=== PATIENT | male | born 1960 | race Caucasian/White ===

== ENCOUNTER 2016-10-04 00:41 | Emergency (ER) | payer OTHER ==
[~2016-10-04 00:41] MED LIST: CYCL-36 PO; TRAM50 PO; Z.0.NO CURRENT MEDS
[2016-10-04 01:18] LABS: AUTOMATED NEUTROPHIL # 4.4 TH/MM3 (1.8-7.7); BASOPHIL % 0.6 % (0.0-2.0); EOSINOPHIL # 0.1 TH/MM3 (0-0.4); EOSINOPHIL % 2.1 % (0.0-4.0); HEMATOCRIT 42.4 % (39.0-51.0); HEMO FLAGS DIFF FINAL; LYMPH % 28.5 % (9.0-44.0); MEAN CELL VOLUME 83.4 FL (80.0-100.0); MEAN CORPUSCULAR HEMOGLOBIN 29.2 PG (27.0-34.0); MONO % 4.7 % (0.0-8.0); NEUT % 64.1 % (16.0-70.0); PLATELET COUNT 263 TH/MM3 (150-450); RED BLOOD COUNT 5.09 MIL/MM3 (4.50-5.90); RED CELL DISTRIBUTION WIDTH 15.5 % (11.6-17.2); WHITE BLOOD COUNT 6.9 TH/MM3 (4.0-11.0)
[2016-10-04 01:19] VITALS: BP 125/73; PULSE 75; RESP 16; TEMP 98.2; O2SAT 98
--- NOTE | 2016-10-04 01:21 | PD ---
HPI Chief Complaint: Morales act Time Seen by Provider: 01:05 Travel History International Travel<30 days: No Contact w/Intl Traveler<30days: No Traveled to known affect area: No History of Present Illness HPI This is a 56-year-old male who presents under Morales act initiated by the Police Department. According to his paperwork he was threatening to kill his neighbor. He also drank vodka today. The patient reports that his neighbor is a [employer] and he is a of the [place] and this creates some animosity between him and his neighbor. When asked if he wants to kill his neighbor he does not respond. He does admit to alcohol use today, he will not tell me what type of alcohol or how much. He denies any drug use. He denies any medical complaints at this time. He denies any suicidal ideation. He has no complaints. PFSH Past Medical History Diminished Hearing: No Past Surgical History Eye Surgery: Yes ( A CHILD - LEFT EYE SURGERY-UNSUCCESSFUL ATTEMPT TO REPAIR A TENDON.) Social History Alcohol Use: Yes (6 PACK A WEEK) Tobacco Use: Yes (1 PPD) Substance Use: Yes Allergies-Medications (Allergen,Severity, Reaction): Coded Allergies: No Known Allergies (Verified , 10/04/16) Reported Meds & Prescriptions Reported Meds & Active Scripts Active Reported [Blood Pressure] Review of Systems Except as stated in HPI: all other systems reviewed are Neg Physical Exam Narrative GENERAL: Well-developed well-nourished male in no acute distress SKIN: Warm and dry. HEAD: Atraumatic. Normocephalic. EYES: Pupils equal and round. No scleral icterus. No injection or drainage. ENT: No nasal bleeding or discharge. Mucous membranes pink and moist. NECK: Trachea midline. No JVD. CARDIOVASCULAR: Regular rate and rhythm. No murmur appreciated. RESPIRATORY: No accessory muscle use. Clear to auscultation. Breath sounds equal bilaterally. GASTROINTESTINAL: Abdomen soft, non-tender, nondistended. MUSCULOSKELETAL: No obvious deformities. NEUROLOGICAL: Awake and alert. No obvious cranial nerve deficits. Motor grossly within normal limits. Normal speech. PSYCHIATRIC: Appropriate mood and affect; insight and judgment normal. Data Data Last Documented VS Vital Signs Date Time Temp Pulse Resp B/P Pulse Ox O2 Delivery O2 Flow Rate FiO2 10/04/16 01:19 98.2 75 16 125/73 98 Orders Complete Blood Count With Diff (10/04/16 00:59) Comprehensive Metabolic Panel (10/04/16 00:59) Drug Screen, Random Urine (10/04/16 00:59) Oximetry (10/04/16 00:59) Ecg Monitoring (10/04/16 00:59) Oxygen Administration (10/04/16 00:59) Alcohol (Ethanol) (10/04/16 00:59) Salicylates (Aspirin) (10/04/16 00:59) Tylenol (Acetaminophen) (10/04/16 00:59) Psych Screen (10/04/16 00:59) Labs Laboratory Tests Test 10/04/16 10/04/16 00:55 01:00 White Blood Count 6.9 TH/MM3 Red Blood Count 5.09 MIL/MM3 Hemoglobin 14.9 GM/DL Hematocrit 42.4 % Mean Corpuscular Volume 83.4 FL Mean Corpuscular Hemoglobin 29.2 PG Mean Corpuscular Hemoglobin 35.0 % Concent Red Cell Distribution Width 15.5 % Platelet Count 263 TH/MM3 Mean Platelet Volume 7.8 FL Neutrophils (%) (Auto) 64.1 % Lymphocytes (%) (Auto) 28.5 % Monocytes (%) (Auto) 4.7 % Eosinophils (%) (Auto) 2.1 % Basophils (%) (Auto) 0.6 % Neutrophils # (Auto) 4.4 TH/MM3 Lymphocytes # (Auto) 2.0 TH/MM3 Monocytes # (Auto) 0.3 TH/MM3 Eosinophils # (Auto) 0.1 TH/MM3 Basophils # (Auto) 0.0 TH/MM3 CBC Comment DIFF FINAL Differential Comment Salicylates Level 3.5 MG/DL Urine Opiates Screen NEG Urine Barbiturates Screen NEG Urine Amphetamines Screen NEG Urine Benzodiazepines Screen NEG Urine Cocaine Screen NEG Urine Cannabinoids Screen NEG Sodium Level 142 MEQ/L Potassium Level 3.8 MEQ/L Chloride Level 108 MEQ/L Carbon Dioxide Level 24.0 MEQ/L Anion Gap 10 MEQ/L Blood Urea Nitrogen 15 MG/DL Creatinine 1.23 MG/DL Estimat Glomerular Filtration 60 ML/MIN Rate Random Glucose 98 MG/DL Calcium Level 8.4 MG/DL Total Bilirubin 0.1 MG/DL Aspartate Amino Transf 22 U/L (AST/SGOT) Alanine Aminotransferase 43 U/L (ALT/SGPT) Alkaline Phosphatase 123 U/L Total Protein 7.1 GM/DL Albumin 3.3 GM/DL Acetaminophen Level LESS THAN 2.0 MCG/ML Ethyl Alcohol Level 290 MG/DL MDM Medical Decision Making Medical Screen Exam Complete: Yes Emergency Medical Condition: Yes Medical Record Reviewed: Yes Interpretation(s) CBC unremarkable CMP unremarkable Alcohol level 290 Differential Diagnosis Substance-induced disorder, adjustment reaction, intermittent explosive disorder , acute psychosis, encephalitis Narrative Course 56-year-old male presents under Morales act for homicidal ideation. Mental health screening discussed with the patient. Psychiatric screen ordered. The patient is medically cleared for psychiatric disposition. Ramon Nunez Oct 04, 2016 01:21
[2016-10-04] MEDS ORDERED: BLOOD PRESSURE (01:24)
[2016-10-04 01:34] LABS: AMPHETAMINE, URINE NEG (NEG); BARBITURATES, URINE NEG (NEG); COCAINE, URINE NEG (NEG)
[2016-10-04 01:50] LABS: ACETAMINOPHEN LESS THAN 2.0 MCG/ML (10.0-30.0); ALKALINE PHOSPHATASE 123 U/L (45-117); TOTAL BILIRUBIN ADULT 0.1 MG/DL (0.2-1.0)
[2016-10-04 01:52] LABS: ALT (GPT) 43 U/L (12-78); ANION GAP 10 MEQ/L (5-15); AST (GOT) 22 U/L (15-37); BLOOD UREA NITROGEN 15 MG/DL (7-18); CHLORIDE 108 MEQ/L (98-107); GLOMERULAR FILTRATION RATE 60 ML/MIN (>89); POTASSIUM 3.8 MEQ/L (3.5-5.1); SODIUM (NA) 142 MEQ/L (136-145)
[2016-10-04 06:31] VITALS: BP 120/72; PULSE 88; RESP 20; TEMP 98; O2SAT 98
--- NOTE | 2016-10-04 12:09 | PD.CONS ---
Provisional Diagnosis Admission Date [place]. Alcohol-induced mood disorder, alcohol use disorder History of Present Illness Service Psychiatry Consult Requested By Primary Care Physician [facility] HPI The patient is a 56-year-old man, domiciled alone in [place], single, unemployed, without any previous psychiatric history, alcohol use disorder, no significant medical history, who presents under Morales act initiated by the Police Department. According to his paperwork he was threatening to kill his neighbor under the context of alcohol intoxication. He he admitted drinking vodka yesterday and being drunk. The patient reports that his neighbor is a [employer] and he is a of the [employer] and this creates some animosity between him and his neighbor. Patient today describes his mood as fine, he is clinically sober, he says that yesterday he was just drunk and not thinking right, he denies suicidal or homicidal ideation, he says that he will never harm his neighbor "even though I don't like him". Patient denies present current christine, anxiety, and perceptual disturbances,. Patient denies visual and auditory hallucinations, patient is oriented 3. He reports the use of alcohol every day, between 8-12 beers, he denies withdrawal, he denies the use of illicit drug. Review of Systems Constitutional: DENIES: Diaphoretic episodes, Fatigue, Fever, Weight gain, Weight loss, Chills, Dizziness, Change in appetite, Night Sweats Endocrine: DENIES: Heat/cold intolerance, Polydipsia, Polyuria, Polyphagia Eyes: DENIES: Blurred vision, Diplopia, Eye inflammation, Eye pain, Vision loss , Photosensitivity, Double Vision Ears, nose, mouth, throat: DENIES: Tinnitus, Hearing loss, Vertigo, Nasal discharge, Oral lesions, Throat pain, Hoarseness, Ear Pain, Running Nose, Epistaxis, Sinus Pain, Toothache, Odynophagia Respiratory: DENIES: Apneas, Cough, Snoring, Wheezing, Hemoptysis, Sputum production, Shortness of breath Cardiovascular: DENIES: Chest pain, Palpitations, Syncope, Dyspnea on Exertion , PND, Lower Extremity Edema, Orthopnea, Claudication Gastrointestinal: DENIES: Abdominal pain, Black stools, Bloody stools, Constipation, Diarrhea, Nausea, Vomiting, Difficulty Swallowing, Anorexia Genitourinary: DENIES: Sexual dysfunction, Urinary frequency, Urinary incontinence, Urgency, Hematuria, Dysuria, Nocturia, Penile Discharge, Testicular Pain, Testicular Swelling Musculoskeletal: DENIES: Joint pain, Muscle aches, Stiffness, Joint Swelling, Back pain, Neck pain Integumentary: DENIES: Abnormal pigmentation, Nail changes, Pruritus, Rash Immunologic/allergic: DENIES: Eczema, Urticaria Neurologic: DENIES: Abnormal gait, Headache, Localized weakness, Paresthesias, Seizures, Speech Problems, Tremor, Poor Balance Psychiatric: DENIES: Anxiety, Confusion, Mood changes, Depression, Hallucinations, Agitation, Suicidal Ideation, Homicidal Ideation, Delusions Past Family Social History Coded Allergies: No Known Allergies (Verified , 10/04/16) Reported Medications [Blood Pressure] No Conflict Check 10/04/16 Physical Exam Vital Signs Vital Signs Date Time Temp Pulse Resp B/P Pulse Ox O2 Delivery O2 Flow Rate FiO2 10/04/16 06:31 98.0 88 20 120/72 98 Room Air Mental Status Examination Appearance man, age appearing, good hygiene, [facility], calm and cooperative Speech: Unremarkable Orientation: x3 Memory: Unremarkable Thought Process: Logical Thought Content: Unremarkable Hallucination Type: None Attention and Concentration: Good Suicidal Ideation: No Homicidal Ideation: No Insight: Good Affect: Good Mood: Appropriate Motor Activity: Normal gait Assessment & Plan Problem List: (1) Alcohol abuse with alcohol-induced mood disorder Assessment & Plan: On psychiatric evaluation today patient is clinically sober , there is no evidence of objective or subjective depressive symptoms, anxiety, christine and perceptual disturbances. Patient denies suicidal or homicidal ideation. He denies visual and auditory hallucinations. He is highly probable that aggressive behavior and homicidal ideation display yesterday by the patient was secondary to poor judgment related with alcohol intoxication and patient's character and no to a primary psychiatric condition. Patient does not meet criteria for psychiatric admission. Morales act will be lifted. Extensive psychoeducation, motivational and support provided. Patient will be discharged back home. ICD Code: F10.14 Assessment & Plan Estimated LOS: days Request HC Surrog/Guard Advoc?: Philippe Kraus MD Oct 04, 2016 12:09
== END 2016-10-04 08:08 | disposition home or self-care (01) ==
LOC: NEPA 00:41
DX: F10.14 Alcohol abuse with alcohol-induced mood disorder (principal); F17.210 Nicotine dependence, cigarettes, uncomplicated; Z56.0 Unemployment, unspecified
CPT/HCPCS: 80053; 80307; 85025; 99283; G0480; 80320; 80329; G0481

== ENCOUNTER 2017-03-08 18:56 | Emergency (ER) | payer OTHER ==
[~2017-03-08 18:56] MED LIST changes: +BLOOD PRESSURE; -CYCL-36 PO; -TRAM50 PO; -Z.0.NO CURRENT MEDS
[2017-03-08 19:07] VITALS: BP 88/44; PULSE 88; RESP 18; TEMP 97.8; O2SAT 98
--- NOTE | 2017-03-08 19:26 | PD ---
HPI Chief Complaint: Medical Clearance Time Seen by Provider: 19:21 Travel History International Travel<30 days: No Contact w/Intl Traveler<30days: No History of Present Illness HPI Patient is a 56-year-old male brought in by the police department for evaluation of a head abrasion after striking his head on the divider in the backseat of the police car. There was no loss of consciousness. Patient denies any headache, visual changes area he has no physical complaints at this time. He is not forthcoming with his medical history, he is agitated with the campus police officer. Patient is alert and oriented. [facility] Past Medical History Medical History: Denies Significant Hx Diminished Hearing: No Hypertension: Yes Immunizations Current: Yes Past Surgical History Eye Surgery: Yes ( A CHILD - LEFT EYE SURGERY-UNSUCCESSFUL ATTEMPT TO REPAIR A TENDON.) Social History Alcohol Use: Yes (6 PACK A WEEK) Tobacco Use: Yes (1 PPD) Substance Use: Yes Allergies-Medications (Allergen,Severity, Reaction): Coded Allergies: No Known Allergies (Verified , 10/04/16) Reported Meds & Prescriptions Reported Meds & Active Scripts Active Reported [Blood Pressure] Review of Systems Except as stated in HPI: all other systems reviewed are Neg Skin: Positive Other (abrasion to scalp) Physical Exam Narrative GENERAL: Well-developed, well-nourished, alert male. In no acute distress. SKIN: Warm and dry. HEAD: Atraumatic. Normocephalic. EYES: Pupils equal and round. No scleral icterus. No injection or drainage. ENT: No nasal bleeding or discharge. Mucous membranes pink and moist. NECK: Trachea midline. No JVD. CARDIOVASCULAR: Regular rate and rhythm. RESPIRATORY: No accessory muscle use. Clear to auscultation. Breath sounds equal bilaterally. GASTROINTESTINAL: Abdomen soft, non-tender, nondistended. Hepatic and splenic margins not palpable. MUSCULOSKELETAL: Extremities without clubbing, cyanosis, or edema. No obvious deformities. NEUROLOGICAL: Awake and alert. No obvious cranial nerve deficits. Motor grossly within normal limits. Five out of 5 muscle strength in the arms and legs. Normal speech. PSYCHIATRIC: Appropriate mood and affect; insight and judgment normal. Data Data Last Documented VS Vital Signs Date Time Temp Pulse Resp B/P Pulse Ox O2 Delivery O2 Flow Rate FiO2 03/08/17 19:07 97.8 88 18 88/44 98 Room Air Orders MDM Medical Decision Making Medical Screen Exam Complete: Yes Emergency Medical Condition: Yes Interpretation(s) Vital Signs Date Time Temp Pulse Resp B/P Pulse Ox O2 Delivery O2 Flow Rate FiO2 03/08/17 19:07 97.8 88 18 88/44 98 Room Air Differential Diagnosis Abrasion versus laceration versus contusion versus other Narrative Course Patient is a 56-year-old male brought in by the Police Department for medical clearance due to the abrasion on his head that he sustained after striking his head on the divider in the backseat of the police car. Patient is alert and oriented 3. He denies any physical complaints at this time. Abrasion was cleaned with peroxide and normal saline, a Band-Aid and antibiotic ointment was applied. Blood pressure was reassessed at 106/65. Patient is medically cleared , and will be discharged to law enforcement. Diagnosis Primary Impression: Medical clearance for incarceration Referrals: [facility] Patient Instructions: Abrasion (ED), General Instructions Additional Instructions: Keep abrasion clean and dry, cover with Band-Aid Follow-up with a primary doctor or at the [facility] Return to emergency department for any new or worsening symptoms Disposition: [address] ENFORCEMNT Condition: Stable Gwen Phillips SIDE GUIDER Mar 08, 2017 19:25
== END 2017-03-08 20:24 ==
LOC: NEPD 18:56
DX: Z04.8 Encounter for examination and observation for other specified reasons (principal); S00.01XA Abrasion of scalp, initial encounter; I10 Essential (primary) hypertension; W22.8XXA Striking against or struck by other objects, initial encounter; Y93.89 Activity, other specified; Y92.89 Other specified places as the place of occurrence of the external cause; F17.210 Nicotine dependence, cigarettes, uncomplicated
CPT/HCPCS: 99283

== ENCOUNTER 2017-04-17 08:44 | Emergency (ER) | payer OTHER ==
[~2017-04-17] VITALS: Ht 172.7 cm; Wt 81.0 kg
[2017-04-17 08:45] VITALS: BP 166/86; PULSE 93; RESP 15; TEMP 97.7; O2SAT 97
[2017-04-17 09:13] VITALS: BP 172/88; PULSE 88; RESP 17; O2SAT 97
--- NOTE | 2017-04-17 10:33 | PD ---
HPI Chief Complaint: Syncope/Near-Syncope Time Seen by Provider: 10:21 Travel History International Travel<30 days: No Contact w/Intl Traveler<30days: No Traveled to known affect area: No History of Present Illness HPI 56-year-old male complains of syncope. Patient states that he was sitting down at home this morning, was trying to stand up and felt dizzy and then passed out. Patient states that he passed out for a few seconds. Patient states that he fell forward however did not hit his head. Patient states that he has aching headache. Patient denies any visual change. Patient states that he has chronic neck pain and that is not new. Patient denies any chest pain or shortness of breath. Patient denies abdominal pain. Patient denies any focal weakness and numbness of extremity. Patient denies any fever chills. Patient denies any nausea vomiting diarrhea. Patient denies any alcohol or drug abuse. Patient has history hypertension and has been taking blood pressure medication. PFSH Past Medical History Diminished Hearing: No Hepatitis: Yes (HEP C) Hypertension: Yes Immunizations Current: Yes Influenza Vaccination: No Past Surgical History Eye Surgery: Yes ( A CHILD - LEFT EYE SURGERY-UNSUCCESSFUL ATTEMPT TO REPAIR A TENDON.) Social History Alcohol Use: Yes (FORMERLY) Tobacco Use: Yes (1/2 PPD) Substance Use: No (FORMERLY MARIJUANA AND IV DRUGS) Allergies-Medications (Allergen,Severity, Reaction): Coded Allergies: No Known Allergies (Verified , 04/17/17) Reported Meds & Prescriptions Reported Meds & Active Scripts Active Review of Systems General / Constitutional: No: Fever Eyes: No: Visual changes HENT: Positive: Headaches Cardiovascular: No: Chest Pain or Discomfort Respiratory: No: Shortness of Breath Gastrointestinal: No: Abdominal Pain Genitourinary: No: Dysuria Musculoskeletal: No: Pain Skin: No Rash Neurologic: No: Weakness Psychiatric: No: Depression Endocrine: No: Polydipsia Hematologic/Lymphatic: No: Easy Bruising Physical Exam Narrative GENERAL: Well-nourished, well-developed patient. SKIN: Focused skin assessment warm/dry. HEAD: Normocephalic. EYES: No scleral icterus. No injection or drainage. Pupils 3 mm equal reactive. NECK: Supple, trachea midline. No JVD or lymphadenopathy. CARDIOVASCULAR: Regular rate and rhythm without murmurs, gallops, or rubs. RESPIRATORY: Breath sounds equal bilaterally. No accessory muscle use. GASTROINTESTINAL: Abdomen soft, non-tender, nondistended. MUSCULOSKELETAL: No cyanosis, or edema. BACK: Nontender without obvious deformity. No CVA tenderness. Neurologic exam normal. Data Data Last Documented VS Vital Signs Date Time Temp Pulse Resp B/P Pulse Ox O2 Delivery O2 Flow Rate FiO2 04/17/17 11:21 77 23 150/90 98 Room Air 04/17/17 08:45 97.7 Orders Electrocardiogram (04/17/17 ) Complete Blood Count With Diff (04/17/17 10:28) Comprehensive Metabolic Panel (04/17/17 10:28) Creatine Kinase (Cpk) (04/17/17 10:28) Troponin I (04/17/17 10:28) Prothrombin Time / Inr (Pt) (04/17/17 10:28) Act Partial Throm Time (Ptt) (04/17/17 10:28) Thyroid Stimulating Hormone (04/17/17 10:28) Chest, Single Ap (04/17/17 10:28) Ct Brain W/O Iv Contrast(Rout) (04/17/17 10:28) Iv Access Insert/Monitor (04/17/17 10:28) Ecg Monitoring (04/17/17 10:28) Oximetry (04/17/17 10:28) Labs Laboratory Tests Test 04/17/17 10:35 White Blood Count 5.1 TH/MM3 Red Blood Count 4.99 MIL/MM3 Hemoglobin 14.6 GM/DL Hematocrit 43.0 % Mean Corpuscular Volume 86.2 FL Mean Corpuscular Hemoglobin 29.3 PG Mean Corpuscular Hemoglobin 33.9 % Concent Red Cell Distribution Width 14.7 % Platelet Count 193 TH/MM3 Mean Platelet Volume 8.3 FL Neutrophils (%) (Auto) 60.2 % Lymphocytes (%) (Auto) 29.4 % Monocytes (%) (Auto) 7.9 % Eosinophils (%) (Auto) 2.0 % Basophils (%) (Auto) 0.5 % Neutrophils # (Auto) 3.1 TH/MM3 Lymphocytes # (Auto) 1.5 TH/MM3 Monocytes # (Auto) 0.4 TH/MM3 Eosinophils # (Auto) 0.1 TH/MM3 Basophils # (Auto) 0.0 TH/MM3 CBC Comment DIFF FINAL Differential Comment Prothrombin Time 10.2 SEC Prothromb Time International 0.9 RATIO Ratio Activated Partial 28.4 SEC Thromboplast Time Sodium Level 138 MEQ/L Potassium Level 4.3 MEQ/L Chloride Level 107 MEQ/L Carbon Dioxide Level 23.5 MEQ/L Anion Gap 8 MEQ/L Blood Urea Nitrogen 16 MG/DL Creatinine 1.09 MG/DL Estimat Glomerular Filtration 69 ML/MIN Rate Random Glucose 125 MG/DL Calcium Level 8.6 MG/DL Total Bilirubin 0.3 MG/DL Aspartate Amino Transf 27 U/L (AST/SGOT) Alanine Aminotransferase 51 U/L (ALT/SGPT) Alkaline Phosphatase 124 U/L Total Creatine Kinase 256 U/L Troponin I LESS THAN 0.02 NG/ML Total Protein 7.4 GM/DL Albumin 3.2 GM/DL Thyroid Stimulating Hormone 3.330 uIU/ML 3rd Gen [facility] Medical Decision Making Medical Screen Exam Complete: Yes Emergency Medical Condition: Yes Interpretation(s) 10:33 AM. EKG shows sinus rhythm nonspecific ST-T wave change. Last Impressions Head CT 04/17/17 1028 Signed Impressions: Service Date/Time: Monday, April 17, 2017 10:44 - CONCLUSION: Normal examination. Aaron Raymond MD Chest X-Ray 04/17/17 1028 Signed Impressions: Service Date/Time: Monday, April 17, 2017 10:37 - CONCLUSION: Normal examination. Aaron Raymond MD 11:26 AM. CBC within normal limit. CMP within normal limit. Cardiac enzymes are normal. Differential Diagnosis Differential diagnosis including vasovagal reaction, dehydration, electrolyte imbalance, TIA, CVA, arrhythmia. Narrative Course 56-year-old male with headache and syncope. Diagnosis Primary Impression: Syncope Qualified Code: R55 - Syncope, unspecified syncope type Additional Impression: Cephalgia Qualified Code: R51 - Acute nonintractable headache, unspecified headache type Patient Instructions: General Instructions Additional Instructions: Encourage by mouth fluid. Follow-up with personal physician. Return as needed. Tylenol for headache. Med/Other Pt SpecificInfo: No Change to Meds Scripts Unable to Obtain Active Prescriptions or Reported Meds Nathan Douglas MD Apr 17, 2017 10:33
[2017-04-17 10:51] LABS: AUTOMATED NEUTROPHIL # 3.1 TH/MM3 (1.8-7.7); BASOPHIL % 0.5 % (0.0-2.0); EOSINOPHIL # 0.1 TH/MM3 (0-0.4); HEMO FLAGS DIFF FINAL; LYMPH % 29.4 % (9.0-44.0); LYMPHOCYTE # 1.5 TH/MM3 (1.0-4.8); MEAN CELL VOLUME 86.2 FL (80.0-100.0); MEAN CORPUSCULAR HEMOGLOBIN 29.3 PG (27.0-34.0); MEAN CORPUSCULAR HGB CONC 33.9 % (32.0-36.0); MONO % 7.9 % (0.0-8.0); NEUT % 60.2 % (16.0-70.0); PLATELET COUNT 193 TH/MM3 (150-450); RED BLOOD COUNT 4.99 MIL/MM3 (4.50-5.90); RED CELL DISTRIBUTION WIDTH 14.7 % (11.6-17.2); WHITE BLOOD COUNT 5.1 TH/MM3 (4.0-11.0)
--- NOTE | 2017-04-17 10:56 | RADRPT ---
EXAM DATE/TIME: 04/17/2017 10:37 [facility] COMPARISON: No previous studies available for comparison. INDICATIONS : Short of breath, dizzy, syncope. MEDICAL HISTORY : Hypertension. SURGICAL HISTORY : None. ENCOUNTER: Initial ACUITY: 1 day PAIN SCORE: 0/10 LOCATION: Bilateral chest FINDINGS: A single view of the chest demonstrates the lungs to be symmetrically aerated without evidence of mas s, infiltrate or effusion. The cardiomediastinal contours are unremarkable. Osseous structures are intact with a healed left seventh rib fracture. CONCLUSION: Normal examination. Aaron Raymond MD on April 17, 2017 at 10:54 Board Certified Radiologist. This report was verified electronically.
[2017-04-17 11:00] LABS: APTT (PATIENT) 28.4 SEC (24.3-30.1); INTERNATIONAL NORMALIZED RATIO 0.9 RATIO; PROTHROMBIN TIME - PATIENT 10.2 SEC (9.8-11.6)
[2017-04-17 11:11] LABS: ALT (GPT) 51 U/L (12-78); ANION GAP 8 MEQ/L (5-15); AST (GOT) 27 U/L (15-37); BICARBONATE 23.5 MEQ/L (21.0-32.0); BLOOD UREA NITROGEN 16 MG/DL (7-18); CHLORIDE 107 MEQ/L (98-107); GLOMERULAR FILTRATION RATE 69 ML/MIN (>89); POTASSIUM 4.3 MEQ/L (3.5-5.1); SODIUM (NA) 138 MEQ/L (136-145)
--- NOTE | 2017-04-17 11:11 | RADRPT ---
EXAM DATE/TIME: 04/17/2017 10:44 [facility] COMPARISON: No previous studies available for comparison. INDICATIONS : Syncopal episode today,dizzy, headache and weakness RADIATION DOSE: 56.38 CTDIvol (mGy) MEDICAL HISTORY : Hypertension. Hepatitis C. SURGICAL HISTORY : None. ENCOUNTER: Initial ACUITY: 1 day PAIN SCALE: 7/10 LOCATION: cranial TECHNIQUE: Multiple contiguous axial images were obtained of the head. Using automated exposure control and adj ustment of the mA and/or kV according to patient size, radiation dose was kept as low as reasonably a chievable to obtain optimal diagnostic quality images. DICOM format image data is available electro nically for review and comparison. FINDINGS: CEREBRUM: The ventricles are normal for age. No evidence of midline shift, mass lesion, hemorrhage or acute in farction. No extra-axial fluid collections are seen. POSTERIOR FOSSA: The cerebellum and brainstem are intact. The 4th ventricle is midline. The cerebellopontine angle i s unremarkable. EXTRACRANIAL: The visualized portion of the orbits is intact. SKULL: The calvaria is intact. No evidence of skull fracture. CONCLUSION: Normal examination. Aaron Raymond MD on April 17, 2017 at 11:09 Board Certified Radiologist. This report was verified electronically.
[2017-04-17 11:18] LABS: ALKALINE PHOSPHATASE 124 U/L (45-117); CREATINE KINASE 256 U/L (39-308); TOTAL BILIRUBIN ADULT 0.3 MG/DL (0.2-1.0)
[2017-04-17 11:21] VITALS: BP 150/90; PULSE 77; RESP 23; O2SAT 98
--- NOTE | 2017-04-17 19:22 | EKG ---
Date Performed: 04/17/2017 Time Performed: 09:10:30 PTAGE: 56 years EKG: Sinus rhythm NORMAL ECG NO PREVIOUS TRACING DOCTOR: Ham Velazquez Interpretating Date/Time 04/17/2017 19:22:01
== END 2017-04-17 12:18 | disposition home or self-care (01) ==
LOC: NEPE 08:44
DX: R55 Syncope and collapse (principal); R51 Headache; R06.02 Shortness of breath; R42 Dizziness and giddiness; R53.1 Weakness; G89.29 Other chronic pain; I10 Essential (primary) hypertension; B19.20 Unspecified viral hepatitis C without hepatic coma; F17.210 Nicotine dependence, cigarettes, uncomplicated
CPT/HCPCS: 70450; 71010; 80053; 82550; 84443; 84484; 85025; 85610; 85730; 93005

== ENCOUNTER 2017-11-03 09:20 | Emergency (ER) | payer OTHER ==
[~2017-11-03] VITALS: Ht 172.7 cm; Wt 91.0 kg
[2017-11-03 09:22] VITALS: BP 178/103; PULSE 83; RESP 22; TEMP 98.5; O2SAT 100
[2017-11-03 10:12] LABS: AUTOMATED NEUTROPHIL # 4.9 TH/MM3 (1.8-7.7); BASOPHIL % 0.7 % (0.0-2.0); EOSINOPHIL # 0.2 TH/MM3 (0-0.4); HEMATOCRIT 54.1 % (39.0-51.0); HEMOGLOBIN 18.9 GM/DL (13.0-17.0); LYMPH % 19.8 % (9.0-44.0); LYMPHOCYTE # 1.4 TH/MM3 (1.0-4.8); MEAN CELL VOLUME 89.2 FL (80.0-100.0); MEAN CORPUSCULAR HEMOGLOBIN 31.1 PG (27.0-34.0); MEAN CORPUSCULAR HGB CONC 34.9 % (32.0-36.0); MEAN PLATELET VOLUME 7.7 FL (7.0-11.0); MONO % 9.2 % (0.0-8.0); MONOCYTE # 0.7 TH/MM3 (0-0.9); NEUT % 67.3 % (16.0-70.0); PLATELET COUNT 248 TH/MM3 (150-450); RED BLOOD COUNT 6.07 MIL/MM3 (4.50-5.90); RED CELL DISTRIBUTION WIDTH 15.3 % (11.6-17.2); WHITE BLOOD COUNT 7.2 TH/MM3 (4.0-11.0)
[2017-11-03 10:31] LABS: ALT (GPT) 164 U/L (12-78)
[2017-11-03 10:32] LABS: ALBUMIN 3.7 GM/DL (3.4-5.0); AST (GOT) 72 U/L (15-37); BICARBONATE 26.2 MEQ/L (21.0-32.0); BLOOD UREA NITROGEN 13 MG/DL (7-18); CALCIUM 9.6 MG/DL (8.5-10.1); CREATININE 1.26 MG/DL (0.60-1.30); GLOMERULAR FILTRATION RATE 59 ML/MIN (>89); GLUCOSE,RANDOM 121 MG/DL (74-106)
--- NOTE | 2017-11-03 11:10 | PD ---
HPI Chief Complaint: Seizure Time Seen by Provider: 09:40 Travel History International Travel<30 days: No Contact w/Intl Traveler<30days: No Traveled to known affect area: No History of Present Illness HPI Is a 57-year-old male presents to the emergency department complaining of "seizure". He states that he has had similar episodes throughout the past couple years, maybe 5 or 6 total severe episodes, multiple other more minor episodes. Describes episodes of feeling lightheaded and dizzy when he first stands up, and sometimes collapsed to the ground. He did describe having "convulsions" with it, but was awake the entire time. Denies any head injury. Has otherwise been feeling generally well and healthy. History Past Medical History Narrative Medical Hypertension Tetanus Vaccination: > 5 Years Influenza Vaccination: Yes Social History Alcohol Use: Yes (FORMERLY) Tobacco Use: Yes (1/2 PPD) Allergies-Medications (Allergen,Severity, Reaction): Coded Allergies: No Known Allergies (Verified Adverse Reaction, Unknown, 11/03/17) Reported Meds & Prescriptions Reported Meds & Active Scripts Active Active Prescriptions or Reported Medications Unobtainable Review of Systems Except as stated in HPI: all other systems reviewed are Neg Physical Exam Narrative GENERAL: Well-appearing 57-year-old man, no acute distress. SKIN: Focused skin assessment warm/dry. HEAD: Atraumatic. Normocephalic. EYES: Pupils equal and round. No scleral icterus. No injection or drainage. ENT: No nasal bleeding or discharge. Mucous membranes pink and moist. NECK: Trachea midline. No JVD. CARDIOVASCULAR: Regular rate and rhythm. No murmur appreciated. RESPIRATORY: No accessory muscle use. Clear to auscultation. Breath sounds equal bilaterally. GASTROINTESTINAL: Abdomen soft, non-tender, nondistended. Hepatic and splenic margins not palpable. MUSCULOSKELETAL: No obvious deformities. No clubbing. No cyanosis. No edema. NEUROLOGICAL: Awake and alert. No obvious cranial nerve deficits. Motor grossly within normal limits. Normal speech. PSYCHIATRIC: Appropriate mood and affect; insight and judgment normal. Data Data Last Documented VS Vital Signs Date Time Temp Pulse Resp B/P (MAP) Pulse Ox O2 Delivery O2 Flow Rate FiO2 11/03/17 09:34 86 18 99 Room Air 11/03/17 09:22 98.5 178/103 (128) Orders Orders Complete Blood Count With Diff (11/03/17 09:42) Comprehensive Metabolic Panel (11/03/17 09:42) Iv Access Insert/Monitor (11/03/17 09:42) Electrocardiogram (11/03/17 ) Labs Laboratory Tests Test 11/03/17 09:51 White Blood Count 7.2 TH/MM3 Red Blood Count 6.07 MIL/MM3 Hemoglobin 18.9 GM/DL Hematocrit 54.1 % Mean Corpuscular Volume 89.2 FL Mean Corpuscular Hemoglobin 31.1 PG Mean Corpuscular Hemoglobin Concent 34.9 % Red Cell Distribution Width 15.3 % Platelet Count 248 TH/MM3 Mean Platelet Volume 7.7 FL Neutrophils (%) (Auto) 67.3 % Lymphocytes (%) (Auto) 19.8 % Monocytes (%) (Auto) 9.2 % Eosinophils (%) (Auto) 3.0 % Basophils (%) (Auto) 0.7 % Neutrophils # (Auto) 4.9 TH/MM3 Lymphocytes # (Auto) 1.4 TH/MM3 Monocytes # (Auto) 0.7 TH/MM3 Eosinophils # (Auto) 0.2 TH/MM3 Basophils # (Auto) 0.0 TH/MM3 CBC Comment DIFF FINAL Differential Comment Blood Urea Nitrogen 13 MG/DL Creatinine 1.26 MG/DL Random Glucose 121 MG/DL Total Protein 8.5 GM/DL Albumin 3.7 GM/DL Calcium Level 9.6 MG/DL Alkaline Phosphatase 113 U/L Aspartate Amino Transf (AST/SGOT) 72 U/L Alanine Aminotransferase (ALT/SGPT) 164 U/L Total Bilirubin 0.7 MG/DL Sodium Level 133 MEQ/L Potassium Level 5.2 MEQ/L Chloride Level 99 MEQ/L Carbon Dioxide Level 26.2 MEQ/L Anion Gap 8 MEQ/L Estimat Glomerular Filtration Rate 59 ML/MIN [facility] Medical Decision Making Medical Screen Exam Complete: Yes Emergency Medical Condition: Yes Interpretation(s) Labs show a little bit elevated liver enzymes, also elevated H&H likely concentration. My review of EKG: Normal sinus rhythm at a rate of 63, normal axis, normal intervals, no acute ischemia. Differential Diagnosis Syncope, seizure, orthostatic hypotension, dehydration, other Narrative Course medical decision making 57-year-old male presents to the emergency department complaining of syncopal- like episode with possible convulsion activity. History of the same. Looks well. Possibly medication effect. He is on blood pressure medicines but does not know what. He looks overall well. Will check labs, small IV fluids, [facility] for what is likely orthostatic syncope. FINAL: Patient likely orthostasis, probably some dehydration. To drink some wine a couple days ago. Liver enzymes overall. Patient endorses a history of hepatitis C. Recommend supportive treatment. Diagnosis Primary Impression: Syncope Additional Instructions: Drink plenty of fluids and stay well-hydrated. Return to the emergency department for any new or worsening symptoms. Med/Other Pt SpecificInfo: No Change to Meds Scripts Unable to Obtain Active Prescriptions or Reported Meds Disposition: 01 DISCHARGE HOME Condition: Stable Aaron Bermudez MD Nov 03, 2017 11:10
[2017-11-03 11:12] LABS: ALKALINE PHOSPHATASE 113 U/L (45-117); CHLORIDE 99 MEQ/L (98-107); SODIUM (NA) 133 MEQ/L (136-145); TOTAL BILIRUBIN ADULT 0.7 MG/DL (0.2-1.0); TOTAL PROTEIN 8.5 GM/DL (6.4-8.2)
[2017-11-03 12:05] VITALS: BP 150/78; TEMP 97.8
--- NOTE | 2017-11-04 15:51 | EKG ---
Date Performed: 11/03/2017 Time Performed: 11:40:23 PTAGE: 57 years EKG: Sinus rhythm NORMAL ECG Since PREVIOUS TRACING , no significant change noted PREVIOUS TRACIN04/17/2017 09.10 DOCTOR: Eber Zuleta Interpretating Date/Time 11/04/2017 15:50:52
== END 2017-11-03 12:05 | disposition home or self-care (01) ==
LOC: NEPE 09:20
DX: R55 Syncope and collapse (principal); R42 Dizziness and giddiness; I10 Essential (primary) hypertension; Z72.0 Tobacco use
CPT/HCPCS: 80053; 85025; 93005; 99284